=== PATIENT | male | born 1990 | race Caucasian/White ===

== ENCOUNTER 2016-10-05 08:22 | Emergency (ER) ==
[2016-10-05 08:31] VITALS: BP 131/90; TEMP 98.4; BMI 17.6
--- NOTE | 2016-10-05 08:47 | ED.PDOC ---
General ED Provider: Dr. VICENTE MATHUR JR Chief Complaint: Non-specific Complaint Stated Complaint: onset with small bump to left neck--then has bilateral swollen lymph glands--2 weeks ago started having problems swallowing-fever off and on--fatigue-nite sweats noted--nauses with vomiting--hurts all over[End] symptoms past 6 weeks--progressively worse--admits to drinking heavily at times- -denies any blood in emesis--feels like throat is swollen also--states has difficulty swallowing--hearing muffled--occ cough[End]98.4 112 20 98% 131/90 9. Patient not willing to consider follow up due to no income no insurance. refer to [facility]- can work with income restrictions Time Seen by Physician: 08:44 Mode of Arrival: Walk-In Information Source: Patient Exam Limitations: No limitations Nursing and Triage Documentation Reviewed and Agree: No Review of Systems - Review Of Systems Constitutional: Reports: Fever, Malaise, Weakness Eyes: Reports: No symptoms Ears, Nose, Mouth, Throat: Reports: Ear pain, Throat pain Respiratory: Reports: Cough Cardiac: Reports: No symptoms GI: Reports: Abdominal pain, Nausea, Vomiting : Reports: Frequency, Incontinence Musculoskeletal: Reports: No symptoms Skin: Reports: No symptoms Neurological: Reports: Anxiety Endocrine: Reports: Unexplained weight loss Hematologic/Lymphatic: Reports: Swollen glands All Other Systems: Other Past Medical History - Past Medical History Previously Healthy: Yes Endocrine: Reports: None Cardiovascular: Reports: None Respiratory: Reports: None Hematological: Reports: None Gastrointestinal: Reports: None Genitourinary: Reports: None Neuro/Psych: Reports: None Musculoskeletal: Reports: None Cancer: Reports: None - Surgical History General Surgical History: Reports: Appendectomy - Family History Family History: Reports: Unknown - Social History Smoking Status: Current every day smoker, Heavy tobacco smoker Hx Substance Use: No Alcohol Screening: Heavy Physical Exam - Physical Exam Appearance: Ill-appearing, Thin Ill-appearing: Moderate Pain Distress: Moderate Eyes: WU, EOMI, Conjunctiva clear ENT: Ears normal, Nose normal, Oropharynx normal Neck: Supple (tender LAD) Respiratory: Airway patent, Breath sounds clear, Breath sounds equal, Respirations nonlabored Cardiovascular: RRR, Pulses normal, No rub, No murmur GI/: Soft, No masses, Bowel sounds normal, No Organomegaly, Tender (nonfocal) Musculoskeletal: Normal strength, ROM intact, No edema, No calf tenderness Skin: Warm, Dry, Normal color (many tattoos) Neurological: Sensation intact, Motor intact, Reflexes intact, Cranial nerves intact, Alert, Oriented Psychiatric: Anxious Critical Care Note - Critical Care Note Total Time (mins): 0 Course - Course Hematology/Chemistry: 10/05/16 08:45 Orders, Labs, Meds: Orders Category Date Time Status BLOOD CULTURE Stat LAB 10/05/16 08:31 Ordered BLOOD CULTURE Stat LAB 10/05/16 08:33 Stop Req CBC W/ AUTO DIFF Stat LAB 10/05/16 08:31 Ordered RAPID FLU A/B Stat LAB 10/05/16 08:31 Uncollected STREP SCREEN Stat LAB 10/05/16 08:31 Uncollected CHEST, 2 VIEWS PA & LAT Stat RADS 10/05/16 08:31 Ordered Vital Signs: Temp Pulse Resp BP Pulse Ox 10/05/16 08:22 98.4 F 112 H 20 131/90 98 Departure - Departure Time of Disposition: 09:28 Disposition: HOME SELF-CARE Discharge Problem: Lymphadenitis Pharyngitis Qualifiers: Pharyngitis/tonsillitis etiology: unspecified etiology Qualifier Code: (J02.9) Acute pharyngitis, unspecified Instructions: Pharyngitis (ED), Adenitis (ED) Condition: Fair Pt referred to PMD for follow-up: Yes Additional Instructions: labs and xray are normal urine shows no disease, continue to keep well hydrated recheck pmd 2 weeks sooner if not improved may follow up with [facility] return if fever over 101.0 if worsening if unable to keep medication down Prescriptions: Hydrocodone Bit/Acetaminophen [[place] 5-325] 1 - 2 tab PO Q6HR PRN #12 tablet PRN Reason: pain Amoxicillin [Amoxil] 500 mg PO TID #30 capsule Promethazine HCl [Phenergan Tab] 25 mg PO QID PRN #12 tablet PRN Reason: Nausea / Vomiting Allergies/Adverse Reactions: Allergies No Known Allergies Allergy (Verified 10/05/16 08:31) Home Medications: Ambulatory Orders Amoxicillin [Amoxil] 500 mg PO TID #30 capsule 10/05/16 Hydrocodone Bit/Acetaminophen [[place] 5-325] 1 - 2 tab PO Q6HR PRN #12 tablet Promethazine HCl [Phenergan Tab] 25 mg PO QID PRN #12 tablet 10/05/16
[2016-10-05 08:56] LABS: BASOPHILS % (AUTO) 0.3 % (0.0-3.0); EOSINOPHILS % (AUTO) 0.2 % (0.0-7.0); HEMATOCRIT 40.7 % (42.0-52.0); HEMOGLOBIN 14.3 g/dl (14.0-18.0); IMMATURE GRANULOCYTE % (AUTO) 0.2 % (0.0-5.0); LYMPHOCYTES % (AUTO) 11.8 (10.0-50.0); MEAN CORPUSCULAR HGB CONC 35.1 (31.8-35.4); MEAN CORPUSCULAR VOLUME 85.3 fl (80.0-94.0); MONOCYTES # (AUTO) 1.2 K/uL (0.4-2.0); MONOCYTES % (AUTO) 13.4 (0-10); NEUTROPHILS # (AUTO) 6.5 K/ul (2.0-6.9); NEUTROPHILS % (AUTO) 74.1; PLATELET COUNT 202 10^3/uL (140-440); RED BLOOD COUNT 4.77 10^6/ul (4.70-6.10); WHITE BLOOD COUNT 8.83 K/ul (4.2-10.2)
[2016-10-05 09:01] LABS: FLU INTERNAL QC INTERNAL QC VALID; RAPID FLU A NEGATIVE (NEGATIVE); RAPID FLU B NEGATIVE (NEGATIVE)
[2016-10-05] MEDS ORDERED: LIDOCAINE 1 % AMP 5 ML (SUTURES) IM STA (09:01)
[2016-10-05] MEDS ORDERED: ROCEPHIN IM STA (09:01)
[2016-10-05] MEDS ORDERED: NORCO 5-325 PO STA (09:15)
--- NOTE | 2016-10-05 09:15 | DI ---
EXAM: Chest two view, frontal and lateral views. HISTORY: Cough. COMPARISON: 11/12/2015. FINDINGS: The heart size is normal. There is no pulmonary vascular congestion. The lungs are disha r. No pleural effusion or pneumothorax is seen. No acute osseous abnormality identified. Since prior study, there has been no significant interval change. IMPRESSION: No acute cardiopulmonary process.
[2016-10-05 09:56] LABS: ADD URINE MICROSCOPIC NO; BILIRUBIN,URINE Negative (NEGATIVE); KETONES,URINE Negative (NEGATIVE); LEUKOCYTE ESTERASE ,URINE Negative (NEGATIVE); NITRITE,URINE Negative (NEGATIVE); PH,URINE 5.5 (5-9); PROTEIN,URINE Negative (NEGATIVE); URINE, BLOOD Negative (NEGATIVE)
== END 2016-10-05 10:37 | disposition home or self-care (01) ==
LOC: ED 08:22
DX: I88.9 Nonspecific lymphadenitis, unspecified (principal); J02.9 Acute pharyngitis, unspecified; R11.2 Nausea with vomiting, unspecified; R10.9 Unspecified abdominal pain; R63.4 Abnormal weight loss; F17.210 Nicotine dependence, cigarettes, uncomplicated; R32 Unspecified urinary incontinence; R35.0 Frequency of micturition
CPT/HCPCS: 36415; 81001; 85025; 87040; 87651; 87804; 87880; 96372; 99283

== ENCOUNTER 2018-09-17 06:56 | Emergency (ER) ==
[2018-09-17] MEDS ORDERED: ATIVAN IVP STA ×2 (07:03→07:17)
[2018-09-17] MEDS ORDERED: SODIUM CHLORIDE 1,000 ML IV STA (07:03)
[2018-09-17 07:06] VITALS: BP 125/97; TEMP 95.4; BMI 20.7
[2018-09-17] MEDS ORDERED: DEMEROL 25 MG/ML VIAL IVP STA (07:23)
--- NOTE | 2018-09-17 08:37 | CT ---
CT facial bones without contrast History:Neck pain TECHNIQUE: Multi-slice sequential. Coronal and sagittal reformats were obtained. Comparison: CT soft tissue neck from same day. FINDINGS: Examination is limited secondary to lack of IV contrast and motion artifacts. No definite displaced facial bone fracture is seen. Small mucous retention cyst or polyp is seen within the left maxillary sinus. No air-fluid levels are seen within the paranasal sinuses. The mastoid air cells appear wel l aerated. Visualized intracranial structures appear grossly unremarkable. No significant facial so ft tissue swelling or focal fluid collection is seen. The bilateral temporal mandibular joints appea r maintained. Impression: 1. No acute displaced facial bone fracture. 2. Minimal left maxillary chronic sinus disease. 3. Limited exam secondary to lack of contrast and motion artifacts.
--- NOTE | 2018-09-17 08:41 | CT ---
EXAM: CT neck without IV contrast HISTORY: Neck pain TECHNIQUE: Multi-slice transaxial helical images of the neck are acquired using a standard protocol without the aid of intravenous contrast. COMPARISON: CT face from same day. FINDINGS: Examination is significantly limited without IV contrast. The areas of tract appears grossly symmetric. The parotid, submandibular, and thyroid glands appear grossly unremarkable. Small bilateral cervical lymph nodes are seen which measure less than 10 mm in short axis. The lung apices appear clear. The mediastinum appears grossly unremarkable. See same day CT face for face findings. No definite focal fluid collection within the neck is seen. IMPRESSION: No acute soft tissue abnormality of the neck. Examination is significantly limited without IV contra st.
--- NOTE | 2018-09-17 12:52 | CT ---
EXAM: CT cervical spine without contrast HISTORY: Neck pain, no obvious injury TECHNIQUE: Multi-slice transaxial helical with coronal and sagittal reformatted views. COMPARISON: CT soft tissue neck from same day. FINDINGS: The visualized vertebral body heights and intervertebral disc spaces appear preserved. No evidence o f listhesis is seen. The articular facets appear aligned. No evidence of displaced cervical spine f racture is seen. No significant central canal or neural foraminal stenosis is seen. The visualized mastoid air cells appear well aerated. Lung apices appear clear. IMPRESSION: No acute osseous abnormality or significant degenerative changes.
--- NOTE | 2018-09-17 16:30 | ED.PDOC ---
General ED Provider: Dr. RUTH ANN CARTER Chief Complaint: Shortness of Air Stated Complaint: admitted to meth abuse by injection right forearm Time Seen by Physician: 08:00 (arrived at 8am at his bedside pt was sleep no resp distress noted .) Mode of Arrival: Walk-In Information Source: Patient Exam Limitations: No limitations Nursing and Triage Documentation Reviewed and Agree: Yes Does patient meet sepsis criteria?: No (has chronic dental pain due to meth abuse ) System Inflammatory Response Syndrome: Not Applicable Sepsis Protocol: For patient's 13 years and over: Temp is 96.8 and below OR 101 and greater Pulse >90 BPM Resp >20/minute Acutely Altered Mental Status Are patient's symptoms suggestive of a new infection, such as: -Pneumonia -Skin, Soft Tissue -Endocarditis -UTI -Bone, Joint Infection -Implantable Device -Acute Abdominal Infection -Wound Infection -Meningitis -Blood Stream Catheter Infection -Unknown Psychological Complaint Exam - Substance Abuse/Use Complaint/Exam Patient Complains Of Substance Abuse Of: Amphetamines (admits to use of the substance in question) Review of Systems - Review Of Systems Constitutional: Reports: No symptoms Eyes: Reports: No symptoms Ears, Nose, Mouth, Throat: Reports: No symptoms Respiratory: Reports: No symptoms Cardiac: Reports: No symptoms GI: Reports: No symptoms : Reports: No symptoms Musculoskeletal: Reports: No symptoms Skin: Reports: No symptoms Neurological: Reports: No symptoms Endocrine: Reports: No symptoms Hematologic/Lymphatic: Reports: No symptoms All Other Systems: Reviewed and Negative Past Medical History - Past Medical History Previously Healthy: Yes Endocrine: Reports: None Cardiovascular: Reports: None Respiratory: Reports: None Hematological: Reports: None Gastrointestinal: Reports: None Genitourinary: Reports: None Neuro/Psych: Reports: None Musculoskeletal: Reports: None Cancer: Reports: None - Surgical History General Surgical History: Reports: Appendectomy - Family History Family History: Reports: Unknown - Social History Smoking Status: Current every day smoker Hx Substance Use: Yes Alcohol Screening: Occasionally - Immunizations Tetanus Shot up to Date: Yes Physical Exam - Physical Exam Appearance: Well-appearing, No pain distress, Well-nourished Eyes: WU, EOMI, Conjunctiva clear ENT: Ears normal, Nose normal (poor dentition), Oropharynx normal Respiratory: Airway patent, Breath sounds clear, Breath sounds equal, Respirations nonlabored Cardiovascular: RRR, Pulses normal, No rub, No murmur GI/: Soft, Nontender, No masses, Bowel sounds normal, No Organomegaly Musculoskeletal: Normal strength, ROM intact, No edema, No calf tenderness Skin: Warm, Dry, Normal color Neurological: Sensation intact, Motor intact, Reflexes intact, Cranial nerves intact, Alert, Oriented Psychiatric: Affect appropriate, Mood appropriate Critical Care Note - Critical Care Note Total Time (mins): 0 Course - Course Hematology/Chemistry: 09/17/18 07:10 09/17/18 07:10 Orders, Labs, Meds: Lab Review 09/17/18 09/17/18 09/17/18 07:01 07:10 07:10 WBC 12.99 H RBC 4.35 L Hgb 13.0 L Hct 38.0 L MCV 87.4 MCH 29.9 MCHC 34.2 RDW Coeff of [place] 13.4 Plt Count 240 Immature Gran % (Auto) 0.2 Neut % (Auto) 74.7 Lymph % (Auto) 10.2 [place] % (Auto) 13.9 H Eos % (Auto) 0.6 Baso % (Auto) 0.4 Immature Gran # (Auto) 0.0 Neut # (Auto) 9.7 H Lymph # (Auto) 1.3 [place] # (Auto) 1.8 Eos # (Auto) 0.1 Baso # (Auto) 0.1 ESR 5 Puncture Site Rrad O2 Saturation 97.0 ABG pH 7.456 H ABG pCO2 28.2 L ABG pO2 80.0 L ABG HCO3 19.8 L ABG Total CO2 21 L ABG Base Excess -4 L Jama Test + FiO2 % 21.0 Sodium 134.8 Potassium 4.75 Chloride 97.4 L Carbon Dioxide 25.4 Anion Gap 16.75 BUN 16.6 Creatinine 1.06 Estimated GFR (MDRD) 83.00 BUN/Creatinine Ratio 15.66 Glucose 78.9 Calcium 9.54 Total Bilirubin 1.19 AST 31.3 ALT 17.1 Alkaline Phosphatase 64.9 Total Protein 7.74 Albumin 5.24 H Globulin 2.50 Albumin/Globulin Ratio 2.09 Salicylate Level mg/dL 1.09 Urine Opiates Screen Ur Oxycodone Screen Urine Methadone Screen Ur Propoxyphene Screen Acetaminophen < 10.0 L Ur Barbiturates Screen U Tricyclic Antidepress Ur Phencyclidine Scrn Ur Amphetamine Screen U Methamphetamines Scrn U Benzodiazepines Scrn Urine Cocaine Screen U Cannabinoids Screen Plasma/Serum Alcohol < 10.0 09/17/18 11:55 WBC RBC Hgb Hct MCV MCH MCHC RDW Coeff of [place] Plt Count Immature Gran % (Auto) Neut % (Auto) Lymph % (Auto) [place] % (Auto) Eos % (Auto) Baso % (Auto) Immature Gran # (Auto) Neut # (Auto) Lymph # (Auto) [place] # (Auto) Eos # (Auto) Baso # (Auto) ESR Puncture Site O2 Saturation ABG pH ABG pCO2 ABG pO2 ABG HCO3 ABG Total CO2 ABG Base Excess Jama Test FiO2 % Sodium Potassium Chloride Carbon Dioxide Anion Gap BUN Creatinine Estimated GFR (MDRD) BUN/Creatinine Ratio Glucose Calcium Total Bilirubin AST ALT Alkaline Phosphatase Total Protein Albumin Globulin Albumin/Globulin Ratio Salicylate Level mg/dL Urine Opiates Screen Negative Ur Oxycodone Screen Positive Urine Methadone Screen Negative Ur Propoxyphene Screen Negative Acetaminophen Ur Barbiturates Screen Negative U Tricyclic Antidepress Negative Ur Phencyclidine Scrn Negative Ur Amphetamine Screen Positive U Methamphetamines Scrn Positive U Benzodiazepines Scrn Positive Urine Cocaine Screen Negative U Cannabinoids Screen Negative Plasma/Serum Alcohol Orders Category Date Time Status ABG DRAW REQUEST Stat CARDIO 09/17/18 07:02 Completed EKG-(ED ONLY) Stat CARDIO 09/17/18 07:02 Completed ED LOCAL SALES MANAGER APPLIED .ONCE EMERGENCY 09/17/18 07:02 Active ED IV/MEDIPORT/POWERPORT .ONCE EMERGENCY 09/17/18 07:02 Active ABG Stat LAB 09/17/18 07:01 Completed ACETAMINOPHEN Stat LAB 09/17/18 07:10 Completed BLOOD ALCOHOL Stat LAB 09/17/18 07:10 Completed CBC W/ AUTO DIFF Stat LAB 09/17/18 07:10 Completed COMPREHENSIVE METABOLIC PANEL Stat LAB 09/17/18 07:10 Completed DRUG SCREEN, URINE, RAPID Stat LAB 09/17/18 11:55 Completed ESR Stat LAB 09/17/18 07:10 Completed SALICYLATE Stat LAB 09/17/18 07:10 Completed 0.9 % Sodium Chloride [Saline Flush] MEDS 09/17/18 07:01 Active 1 syr IVF PRN PRN Lorazepam [Ativan] MEDS 09/17/18 07:03 Discontinued 1 mg IVP ONCE STA Lorazepam [Ativan] MEDS 09/17/18 07:17 Discontinued 1 mg IVP ONCE STA Meperidine HCl/Pf [Demerol 25 mg/ml Vial] MEDS 09/17/18 07:23 Discontinued 25 mg IVP ONCE STA Sodium Chloride 0.9% [Sodium Chloride] 1,000 ml MEDS 09/17/18 07:03 Active IV 100 mls/hr CT CERVICAL SPINE W/O CONTRAST Stat RADS 09/17/18 10:[address] MAXILLOFACIAL W/O CONTRAST Stat RADS 09/17/18 07:[address] SOFT TISSUE NECK W/O CONTR Stat RADS 09/17/18 07:03 Completed Medications Generic Name Dose Route Start Last Admin Trade Name Freq PRN Reason Stop Dose Admin Sodium Chloride 1,000 mls @ 100 mls/hr 09/17/18 07:03 09/17/18 07:53 Sodium Chloride IV 09/17/18 17:02 100 mls/hr .Q10H STA Administration Sodium Chloride 1 syr 09/17/18 07:01 Saline Flush IVF PRN PRN To flush IV Discontinued Medications Generic Name Dose Route Start Last Admin Trade Name Freq PRN Reason Stop Dose Admin Lorazepam 1 mg 09/17/18 07:03 09/17/18 07:41 Ativan IVP 09/17/18 07:04 1 mg ONCE STA Administration Lorazepam 1 mg 09/17/18 07:17 09/17/18 07:51 Ativan IVP 09/17/18 07:18 1 mg ONCE STA Administration Meperidine HCl 25 mg 09/17/18 07:23 09/17/18 07:52 Demerol 25 Mg/Ml Vial IVP 09/17/18 07:24 25 mg ONCE STA Administration Vital Signs: Temp Pulse Resp BP Pulse Ox 09/17/18 06:57 95.4 F L 102 H 22 125/97 H 85 L Departure - Departure Time of Disposition: 16:34 Disposition: HOME SELF-CARE Discharge Problem: Methamphetamine abuse, Dental caries Instructions: Methamphetamine Abuse (ED), Toothache (ED) Condition: Good Pt referred to PMD for follow-up: Yes IPMP verified?: No Additional Instructions: Please call your Family Physician as soon as possible to schedule a follow-up appointment. Allergies/Adverse Reactions: Allergies No Known Allergies Allergy (Verified 10/05/16 08:31) Home Medications: Ambulatory Orders 1 [No Reported Medications] 09/17/18 Disposition Discussed With: Patient, Family
== END 2018-09-17 16:42 | disposition home or self-care (01) ==
LOC: ED 06:56
DX: K08.89 Other specified disorders of teeth and supporting structures (principal); K02.7 Dental root caries; F15.10 Other stimulant abuse, uncomplicated; F17.210 Nicotine dependence, cigarettes, uncomplicated
CPT/HCPCS: 36415; 80053; 80306; 80307; 82803; 85025; 85651; 93005; 93010; 96361; 96374; 96375; 96376; 99284

== ENCOUNTER 2018-11-29 01:07 | Emergency (ER) ==
[2018-11-29 01:17] VITALS: BP 124/83; TEMP 97.2; BMI 18.6
[2018-11-29] MEDS ORDERED: LIDOCAINE HCL 1% SDV SUBCUT STA (01:38)
--- NOTE | 2018-11-29 01:40 | ED.PDOC ---
General ED Provider: Dr. REGINA PARTIDA Chief Complaint: Finger Laceration Stated Complaint: sustained a laceration to the tip of the left pinty finger with a sharp knief almost shaving the tip off . Tetroxius is up to date. Has severe pain at the finger tip. Time Seen by Physician: 01:37 Mode of Arrival: Walk-In Information Source: Patient Nursing and Triage Documentation Reviewed and Agree: Yes Does patient meet sepsis criteria?: No System Inflammatory Response Syndrome: Not Applicable Sepsis Protocol: For patient's 13 years and over: Temp is 96.8 and below OR 101 and greater Pulse >90 BPM Resp >20/minute Acutely Altered Mental Status Are patient's symptoms suggestive of a new infection, such as: -Pneumonia -Skin, Soft Tissue -Endocarditis -UTI -Bone, Joint Infection -Implantable Device -Acute Abdominal Infection -Wound Infection -Meningitis -Blood Stream Catheter Infection -Unknown Skin Complaint Exam - Laceration/Abrasion/Hand Complaint/Exam Location of Injury: Left, Digit #5 Mechanism of Injury: Laceration, Sharp trauma Onset/Duration: 1 Hour Symptoms Are: Still present Initial Severity: Severe Current Severity: Moderate Aggravating: Movement Alleviating: Compression Associated Signs and Symptoms: Denies: Fever, Chills, Erythema, Numbness, Tingling Related History: Reports: Right hand dominant Hand Picture: 1 - flap laceration, tip of finger. Differential Diagnoses: Laceration Review of Systems - Review Of Systems Constitutional: Reports: No symptoms Eyes: Reports: No symptoms Ears, Nose, Mouth, Throat: Reports: No symptoms Respiratory: Reports: No symptoms Cardiac: Reports: No symptoms GI: Reports: No symptoms : Reports: No symptoms Musculoskeletal: Reports: No symptoms Skin: Reports: Bruising Neurological: Reports: No symptoms Endocrine: Reports: No symptoms Hematologic/Lymphatic: Reports: No symptoms All Other Systems: Reviewed and Negative Past Medical History - Past Medical History Previously Healthy: Yes Endocrine: Reports: None Cardiovascular: Reports: None Respiratory: Reports: None Hematological: Reports: None Gastrointestinal: Reports: None Genitourinary: Reports: None Neuro/Psych: Reports: None Musculoskeletal: Reports: None Cancer: Reports: None - Surgical History General Surgical History: Reports: Appendectomy - Family History Family History: Reports: Unknown - Social History Smoking Status: Current every day smoker, Heavy tobacco smoker Hx Substance Use: Yes (ALCOHOL AND SUBSTANCE IN THE PAST) Alcohol Screening: None - Immunizations Tetanus Shot up to Date: Yes (2016) Physical Exam - Physical Exam Appearance: Well-appearing Pain Distress: Severe Respiratory: Airway patent Musculoskeletal: ROM intact Skin: Warm, Dry Neurological: Alert, Oriented Procedures - Laceration/Wound Repair Left 5th digit Finger tip Wound Description: Irregular, Flap Wound Length (cm): 1 Wound Depth: 0.5 Wound Explored: Clean Wound Irrigated: No Wound Prep: Hibiclens Wound Repaired With: Dermabond Progress: Refused to have sutures only wanted Dermabound. Critical Care Note - Critical Care Note Total Time (mins): 0 Course - Course Vital Signs: Temp Pulse Resp BP Pulse Ox 11/29/18 01:08 97.2 F L 114 H 18 124/83 98 Departure - Departure Time of Disposition: 01:58 Disposition: HOME SELF-CARE Discharge Problem: Laceration of finger Instructions: Finger Laceration (ED), Skin Adhesive Care (ED) Condition: Fair Pt referred to PMD for follow-up: Yes IPMP verified?: No Additional Instructions: Follow up with PCP as needed. Watch for signs of infection take Tylenol or Motrin as need for pain Allergies/Adverse Reactions: Allergies codeine Adverse Reaction (Verified 11/29/18 01:15) Hives Home Medications: Ambulatory Orders 1 [No Reported Medications] 09/17/18 Disposition Discussed With: Patient
[2018-11-29] MEDS ORDERED: MOTRIN PO STA (01:59)
== END 2018-11-29 02:09 | disposition home or self-care (01) ==
LOC: ED 01:07
DX: S61.217A Laceration without foreign body of left little finger without damage to nail, initial encounter (principal); F17.210 Nicotine dependence, cigarettes, uncomplicated
CPT/HCPCS: 99283